=== PATIENT | male | born 1980 | race Caucasian/White ===

== ENCOUNTER 2024-05-03 20:38 | Emergency (ER) | payer SELFPAY ==
[~2024-05-03] VITALS: Ht 167.6 cm; Wt 80.0 kg
[2024-05-03 20:42] VITALS: O2SAT 98
[2024-05-03] MEDS ORDERED: TETANUS, DIPHTHERIA, PERTUSSIS VAC/PF 0.5ML (>10YR OLD) IM ONE (21:45)
[2024-05-04 00:18] LABS: BASOPHILS % 0.2 % (0.0-2.0); EOSINOPHILS % 0.6 % (0.0-5.0); HEMATOCRIT. 42.9 % (42.0-52.0); HEMOGLOBIN. 14.7 g/dL (14.0-18.0); LYMPHOCYTES % 16.5 % (20.0-50.0); MEAN CORPUSCULAR HEMOGLOBIN 31.1 pg (28.0-32.0); MEAN CORPUSCULAR HGB CONC 34.2 g/dL (31.0-37.0); MEAN CORPUSCULAR VOLUME 90.9 fL (80.0-94.0); MEAN PLATELET VOLUME 9.1 fl (7.4-10.4); MONOCYTES % 5.1 % (2.0-8.0); NEUTROPHILS % 77.6 % (40.0-76.0); PLATELET 193 x1000/uL (130-400); RED BLOOD CELL COUNT 4.72 mill/uL (4.7-6.1); RED CELL DISTRIBUTION WIDTH 13.8 % (11.6-14.6); WHITE BLOOD COUNT 12.5 x1000/uL (4.5-11.0)
[2024-05-04 00:23] LABS: CHLORIDE 104 mEq/L (98-107); POTASSIUM 3.6 mEq/L (3.5-5.1); SODIUM 139 mEq/L (136-145)
[2024-05-04 00:24] LABS: CALCIUM 9.1 mg/dL (8.7-10.4); CARBON DIOXIDE 23 mEq/L (21-32)
[2024-05-04 00:29] LABS: CREATININE 0.8 mg/dL (0.6-1.3); GLUCOSE 115 mg/dL (70-105); UREA NITROGEN BLOOD 14 mg/dL (9-23)
[2024-05-04] MEDS: KETOROLAC 15MG/ML VIAL IV ONE (00:33)
[2024-05-04] MEDS: TETANUS, DIPHTHERIA, PERTUSSIS VAC/PF 0.5ML (>10YR OLD) IM ONE (00:34)
[2024-05-04] MEDS ORDERED: HYDR-4001 MT (00:36)
[2024-05-04] MEDS ORDERED: IOHEXOL-300 100 ML BOTTLE ONE (03:23)
[2024-05-04 03:34] VITALS: BP 139/79; PULSE 89; RESP 20; TEMP 37.16964; O2SAT 98
== END 2024-05-04 03:40 | disposition home or self-care (01) ==
LOC: ER 20:38
DX: S02.2XXA Fracture of nasal bones, initial encounter for closed fracture (principal); S00.83XA Contusion of other part of head, initial encounter; S30.1XXA Contusion of abdominal wall, initial encounter; V49.69XA Unspecified car occupant injured in collision with other motor vehicles in traffic accident, initial encounter; Y93.89 Activity, other specified; Y92.481 Parking lot as the place of occurrence of the external cause; Y99.8 Other external cause status
CPT/HCPCS: 36415; 99285; 80048; 85025; 70450; 70486; 74177; 90715; 90471; 96372; J1885; Q9967; Z7610